=== PATIENT | male | born 1985 | race Caucasian/White ===

== ENCOUNTER 2017-05-06 13:58 | Emergency (ER) | payer OTHER ==
[2017-05-06] MEDS ORDERED: Rabies Vaccine, PCEC INJ* 1 ml IM ONE (14:47)
[2017-05-06] MEDS ORDERED: Rabies Immune Globulin 2 ML* 150 UNITS/ML VIAL IM ONE ×2 (14:47)
[2017-05-06] MEDS ORDERED: Rabies Immune Globulin 10 ML* 150 UNIT/ML VIAL IM ONE (14:48)
--- NOTE | 2017-05-06 16:01 | UC ---
Bite Injury/Animal HPI - HPI Summary HPI Summary: Patient presents to the with concern for rabies exposure. He states the family awoke to a bat in their room which eventually flew out the window and was not captured. He called the [facility] this morning who advised prophylaxis and vaccine. He denies any symptoms, is otherwise healthy and takes no medications. He has no open lesions or concern for any bite. - History of Current Complaint Chief Complaint: UCGeneralIllness Stated Complaint: RABIES EXPOSURE Time Seen by Provider: 05/06/17 14:03 Hx Obtained From: Patient Severity Currently: None Pain Intensity: 0 Pain Scale Used: 0-10 Numeric Onset/Duration: Sudden Onset Animal Available for Observation: No Animal Control Notified: No - Risk Factors Infection/Sepsis Risk Factors: Negative - Allergies/Home Medications Allergies/Adverse Reactions: Allergies Allergy/AdvReac Type Severity Reaction Status Date / Time No Known Allergies Allergy Verified 05/06/17 14:17 Home Medications: Home Medications NK [No Home Medications Reported] 05/06/17 [History Confirmed 05/06/17] PMH/Surg Hx/FS Hx/Imm Hx Previously Healthy: Yes - Surgical History Surgical History: Yes Surgery Procedure, Year, and Place: [place] - Family History Known Family History: Positive: Unknown - Social History Occupation: Employed Full-time Lives: With Family Alcohol Use: Occasionally Substance Use Type: None Smoking Status (MU): Never Smoked Tobacco Review of Systems Constitutional: Negative Skin: Negative Respiratory: Negative Cardiovascular: Negative Motor: Negative Neurovascular: Negative Neurological: Negative Psychological: Negative All Other Systems Reviewed And Are Negative: Yes Physical Exam Triage Information Reviewed: Yes Appearance: Well-Appearing, Well-Nourished Vital Signs: Initial Vital Signs Temp 98 F 05/06/17 14:18 Pulse 67 05/06/17 14:18 Resp 18 05/06/17 14:18 Pulse Ox 100 05/06/17 14:18 Vital Signs Reviewed: Yes Eye Exam: Normal Eyes: Positive: Conjunctiva Clear Neck exam: Normal Neck: Positive: Supple, No Lymphadenopathy Respiratory Exam: Normal Respiratory: Positive: Chest non-tender Cardiovascular Exam: Normal Cardiovascular: Positive: RRR, No Murmur Musculoskeletal Exam: Normal Musculoskeletal: Positive: Strength Intact Neurological Exam: Normal Psychological: Positive: Normal Response To Family, Age Appropriate Behavior Skin Exam: Normal Bite Injury Course/Dx - Course Course Of Treatment: Patient evaluated for rabies exposure. No known bite. [facility] called and spoke with Patricia Palm who advised prophylaxis. Rabies vaccine 2.5 (rabavert) given IM in R deltoid. Tdap current and not administered. HRIG advised d/t high risk animal (bat). 3ml given L anterolateral; 3ml R anterolateral; 3 ml L vastus lateralis; 3ml R vastus lateralis. 12 total. No immunoglobulin given into wound d/t no known or visible bite. Patient denies any pain, symptoms or open wounds. Follow up given for days 3, 7, and 14 as followed by [facility] and [facility] protocols. Patient OK with discharge and will follow up accordingly. He will have follow ups at the [facility] as directed. - Differential Dx/Diagnosis Differential Diagnosis/HQI/PQRI: Envenomation, Puncture, Rabies Exposure Provider Diagnoses: rabies exposure Discharge - Discharge Plan Condition: Stable Disposition: HOME Referrals: No Primary Care Phys,NOPCP [Primary Care Provider] - Additional Instructions: Follow up on day 3, 7 and 14
== END 2017-05-06 16:08 | disposition home or self-care (01) ==
LOC: UCEAST 13:58
DX: Z20.3 Contact with and (suspected) exposure to rabies (principal)
CPT/HCPCS: 90375; 90471; 90675; 96372; 99201; G0463